=== PATIENT | female | born 1970 | race Caucasian/White ===

== ENCOUNTER 2016-11-06 11:42 | Day surgery (SDC) | payer OTHER ==
[~2016-11-06 11:42] MED LIST: ceFAZolin 2 GM/50 ML 50 ML IV ONE
[2016-11-06] MEDS ORDERED: LACTATED RINGERS 1,000 ML IV ONE ×2 (12:04→15:16)
[2016-11-06 13:18] LABS: HCG UR QUAL NEGATIVE
[2016-11-06] MEDS ORDERED: BUPIVACAINE 0.5% PF 30 ML VIAL SUBQ ONE (14:44)
[2016-11-06] MEDS ORDERED: PROPOFOL 200 MG/20 ML VIAL IVP ONE (15:33)
[2016-11-06] MEDS ORDERED: fentaNYL 100 MCG/2 ML VIAL IVP ONE (15:33)
[2016-11-06] MEDS ORDERED: ROPIVACAINE 0.5% PF 20 ML AMPULE EP ONE (15:33)
[2016-11-06] MEDS ORDERED: MIDAZOLAM 2 MG/2 ML VIAL IVP ONE (15:33)
[2016-11-06] MEDS ORDERED: DEXAMETHASONE 4 MG/ML VIAL IVP ONE (15:33)
[2016-11-06 16:55] VITALS: BP 108/68
--- NOTE | 2016-11-06 18:34 | OPERATIVE REPORT ---
DATE OF SURGERY: 11/06/2016 00:00:00 PREOPERATIVE DIAGNOSIS: Right thumb carpometacarpal joint arthritis. POSTOPERATIVE DIAGNOSIS: Right thumb carpometacarpal joint arthritis. NAME OF PROCEDURE: Right thumb carpometacarpal joint arthroplasty, with ligament reconstruction and tendon interposition. SURGEON: Kelley Boyd MD ANESTHESIA: Interscalene block and sedation by Yajaira __Kaity . 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 She has had injection treatment, and has ongoing pain and swelling in that area, and desires arthroplasty. FINDINGS AT SURGERY: The patient's joint showed hypertrophic spurring and a small loose body. The cartilage loss was predominantly on the base of the first metacarpal, but also some spotty loss on the trapezium. DESCRIPTION OF OPERATIVE PROCEDURE: The patient was taken to the operating room. She was given an interscalene block and then a MAC anesthetic. A tourniquet was placed on her arm, and her forearm and hand were sterilely prepped and draped in the standard fashion. The thumb was approached through a curved incision at the base of thumb, retracting the extensor tendons and exposing the capsule of the carpometacarpal joint, which was incised longitudinally, gaining exposure also to the radial aspect of the trapezium. The arthrotomy was performed and a small loose body removed. Fluid was encountered and synovitis. Reflection was made in the capsule to expose both the base of the first metacarpal and the trapezium, allowing resection of the trapezium. Once this was accomplished, a drill hole was placed in the base of the first metacarpal and the flexor carpi radialis was freed from the forearm to act as a graft, both as a suspension ligament reconstruction and then an interposition in the gap. The graft was prepared to pass through the small drill hole in the metacarpal, back on itself, and then woven into an anchovy graft with sutures holding it in place. This was accomplished with securing of the tendon reconstruction and the capsule closure. The thumb had been held in abduction and pinned with 0.062 K-wire into the carpus, which held anatomic rastafari. The tourniquet was deflated. Mild bleeders were cauterized. The continuing closure was with interrupted Vicryl subcutaneous and Monocryl in the skin. Sterile dressings were applied. The patient was placed in a thumb spica splint and taken to the recovery room in stable condition. ESTIMATED BLOOD LOSS: Minimal. COMPLICATIONS: None. SPONGE AND NEEDLE COUNTS: Correct. JOB #: [id number] EXT JOB #:[id number] MTDD
== END 2016-11-06 11:43 | disposition home or self-care (01) ==
LOC: SDS 11:42
PROVIDERS: ATTEND Orthopaedic Surgery
PROC: 0RQT0ZZ Repair Left Carpometacarpal Joint, Open Approach (ICD-10-PCS; principal; 2016-11-06 12:45)
DX: M18.11 Unilateral primary osteoarthritis of first carpometacarpal joint, right hand (principal); J45.909 Unspecified asthma, uncomplicated; E03.9 Hypothyroidism, unspecified; F41.9 Anxiety disorder, unspecified; F32.9 Major depressive disorder, single episode, unspecified; D64.9 Anemia, unspecified
CPT/HCPCS: 25447; 26480; 81025; J0690; J7120

== ENCOUNTER 2018-10-29 03:11 | Emergency (ER) | payer BC, OTHER ==
--- NOTE | 2018-10-29 03:33 | ED Physician Documentation ---
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 No: Neck pain, Weakness, Paresthesias, Nausea / vomiting Contributing factors: Intoxicated. No: Anticoagulated Similar symptoms before: Has not had sx before Recently seen: Not recently seen - Additional information Additional information: patient does not recall falling. She recalls watching TV, then found she was at the bottom of a flight of stairs at home with right wrist pain and bleeding from a scalp laceration. She was able to walk back up the steps and told her roommate that she had sustained these injuries, friend drove patient to ED. Patient c/o right wrist pain and GRAVES Review of Systems Eyes: reports: Reviewed and negative Cardiac: reports: Reviewed and negative Respiratory: reports: Reviewed and negative GI: reports: Reviewed and negative Skin: reports: Laceration (s) (scalp laceration) Musculoskeletal: reports: Joint pain (right wrist), Joint swelling (right wrist) Neurologic: reports: Headache, Head injury, LOC. denies: Generalized weakness, Focal weakness, Numbness PD PAST MEDICAL HISTORY - Past Medical History Cardiovascular: None Respiratory: Asthma, Sleep apnea Endocrine/Autoimmune: HyPOthyroidism GI: None : None HEENT: Chronic vision loss Psych: Anxiety Musculoskeletal: Osteoarthritis Derm: None - Past Surgical History General: Gastric surgery, Other - Present Medications Home Medications: Ambulatory Orders Medication Instructions Recorded Confirmed Albuterol Sulfate [Proventil Hfa] 60 puffs IH ONCE PRN 08/22/15 10/29/18 Alprazolam [Alprazolam Xr] 0.5 mg PO ONCE PRN 08/22/15 10/29/18 Citalopram [CeleXA] 20 mg PO DAILY 08/22/15 10/29/18 Ferrous Sulfate 325 mg PO DAILY 08/22/15 10/29/18 Levothyroxine [Synthroid] 25 mcg PO QDAC 08/22/15 10/29/18 Oxycodone HCl/Acetaminophen 1 - 2 each PO Q6H PRN #14 tablet 10/29/18 [Percocet 5-325 mg Tablet] - Allergies Allergies/Adverse Reactions: Allergies Allergy/AdvReac Type Severity Reaction Status Date / Time Penicillins Allergy Hives Verified 10/29/18 03:31 PD ED PE NORMAL - Vitals Vital signs reviewed: Yes - General General: Alert and oriented X 3, No acute distress, Well developed/nourished - HEENT HEENT: PERRL, EOMI, Moist mucous membranes - Neck Neck: No bony TTP - Cardiac Cardiac: RRR, No murmur - Respiratory Respiratory: No respiratory distress, Clear bilaterally - Abdomen Abdomen: Soft, Non tender - Back Back: No spinal TTP - Derm Derm: Normal color, Warm and dry - Extremities Extremities: Other (right wrist: focal swelling and TTP ulnar aspect of wrist) - Neuro Neuro: Alert and oriented X 3, 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, No motor deficit, No sensory deficit, Normal speech Eye Opening: Spontaneous Motor: Obeys Commands Verbal: Oriented GCS Score: 15 PD ED PE EXPANDED - HEENT HEENT Visual: 1 - laceration (5 cm length) Results - Vitals Vitals: Vital Signs - 24 hr 10/29/18 10/29/18 10/29/18 03:15 03:27 03:49 Temperature 36.7 C Heart Rate 93 79 79 Respiratory 18 12 12 Rate Blood Pressure 125/65 104/43 L 104/43 L O2 Saturation 99 99 100 10/29/18 10/29/18 10/29/18 04:36 05:36 06:00 Temperature 36.5 C Heart Rate 85 86 86 Respiratory 13 12 14 Rate Blood Pressure 103/62 101/60 106/59 L O2 Saturation 98 97 96 Oxygen O2 Source Room air - Rads (name of study) CTH Radiology: Prelim report reviewed, See rad report CT cervical spine Radiology: Prelim report reviewed, See rad report right wrist xrays Radiology: Prelim report reviewed, See rad report Procedures - Laceration (location) Scalp Length in cm: 5 Wound type: Linear Anesthesia: Lidocaine 1% Wound Preparation: Hibiclens, Irrigated copiously NS, Wound explored Skin layer closure: Sera Other: Patient tolerated well, No complications, Neurovascular intact, Tetanus UTD Complexity: Simple - Splint (location) Upper extremity right Splint applied by: Tech Type of splint: Fiberglass, Ulnar gutter Other: Patient tolerated well, No complications, Neurovascular intact, Good alignment PD MEDICAL DECISION MAKING - ED course Complexity details: reviewed results, re-evaluated patient, considered differential, d/w patient Departure - Departure Disposition: 01 Home, Self Care Clinical Impression: Fall, Scalp laceration, Sprain of wrist, right Condition: Good Instructions: ED Laceration Scalp Stitch Or Stap, ED Splint Care Fiberglass, ED Sprain Wrist Prescriptions: Oxycodone HCl/Acetaminophen [Percocet 5-325 mg Tablet] 1 - 2 each PO Q6H PRN #14 tablet PRN Reason: pain Comments: Follow up with your primary care provider in 7-10 days for removal of the sera and reevaluation of the wrist injury. Discharge Date/Time: 10/29/18 06:00
[2018-10-29] MEDS ORDERED: LIDOCAINE 1% 2 ML VIAL SUBQ STA (03:44)
--- NOTE | 2018-10-29 04:32 | XRAY Report ---
Reason: fall, right wrist pain Procedure Date: 10/29/2018 Accession Number: [id number] / [id number] Procedure: XR - Wrist 4 View RT CPT Code: FULL RESULT: EXAM: RIGHT WRIST RADIOGRAPHY EXAM DATE: 10/29/2018 04:24 AM. CLINICAL HISTORY: Fall, right wrist pain. COMPARISON: None. TECHNIQUE: 4 views. FINDINGS: Bones: No acute fracture is seen. There appears to be resection of the trapezium. Joints: No dislocation seen. Mild degenerative changes. Soft Tissues: Soft tissue swelling. IMPRESSION: 1. No acute fracture or dislocation seen. 2. There appears to be resection of the trapezium. RADIA
--- NOTE | 2018-10-29 04:35 | CT Report ---
Reason: fall, head injury Procedure Date: 10/29/2018 Accession Number: [id number] / [id number] Procedure: CT - HEAD WO CPT Code: FULL RESULT: EXAM: CT HEAD EXAM DATE: 10/29/2018 04:24 AM. CLINICAL HISTORY: Fall, head injury. COMPARISON: None. TECHNIQUE: Multiaxial CT images were obtained from the foramen magnum to the vertex. Reformats: Sagittal and coronal. IV contrast: None. In accordance with CT protocol optimization, one or more of the following dose reduction techniques were utilized for this exam: automated exposure control, adjustment of mA and/or KV based on patient size, or use of iterative reconstructive technique. FINDINGS: Parenchyma: No intraparenchymal hemorrhage. No evidence of mass, midline shift, or CT findings of infarction. Alex-white differentiation is distinct. Extraaxial Spaces: Normal for age. No subdural or epidural collections identified. Ventricles: Normal in size and position. Sinuses and Orbits: Mild chronic sinus disease. Visualized orbital contents are unremarkable. Bones: No evidence of fracture or calvarial defect. Other: None. IMPRESSION: Mild chronic sinus disease. Otherwise, normal CT of the brain without contrast. RADIA
--- NOTE | 2018-10-29 04:38 | CT Report ---
Reason: fall, head injury Procedure Date: 10/29/2018 Accession Number: [id number] / [id number] Procedure: CT - CERVICAL SPINE WO CPT Code: FULL RESULT: EXAM: CT CERVICAL SPINE WITHOUT CONTRAST DATE: 10/29/2018 04:24 AM. HISTORY: Pain after injury. Intoxication. COMPARISONS: None. TECHNIQUE: Thin-section axial images were acquired of the cervical spine without contrast. Post-processing: Coronal and sagittal reformats. Other: None. In accordance with CT protocol optimization, one or more of the following dose reduction techniques were utilized for this exam: automated exposure control, adjustment of mA and/or KV based on patient size, or use of iterative reconstructive technique. FINDINGS: Alignment: No scoliosis or spondylolisthesis. Bones: No fracture or bone lesion. Interspace Levels/Facets: C1-C2: Unremarkable. C2-C3: Unremarkable. C3-C4: Unremarkable. C4-C5: Mild degenerative disk disease. C5-C6: Moderate degenerative disk disease with posterior disk osteophyte complex contacting the cord, left worse than right. Uncovertebral joint spurring with mild left foraminal stenosis. C6-C7: Mild degenerative disk disease. C7-T1: Unremarkable. Musculature: Normal. No fatty atrophy. Other: The paravertebral and prevertebral soft tissues are unremarkable. The lung apices are clear. IMPRESSION: 1. No acute cervical spine abnormality. 2. Degenerative disk disease, especially C5-C6, with mild left foraminal stenosis. RADIA
[2018-10-29] MEDS ORDERED: oxyCODONE 5 MG TABLET PO STA (05:30)
[2018-10-29 06:00] VITALS: BP 106/59
== END 2018-10-29 06:00 | disposition home or self-care (01) ==
LOC: ED 03:11
DX: S01.01XA Laceration without foreign body of scalp, initial encounter (principal); S63.501A Unspecified sprain of right wrist, initial encounter; W10.9XXA Fall (on) (from) unspecified stairs and steps, initial encounter; Y92.009 Unspecified place in unspecified non-institutional (private) residence as the place of occurrence of the external cause; M50.322 Other cervical disc degeneration at C5-C6 level
CPT/HCPCS: 12002; 29125; 70450; 72125; 73110; 99284; A9270

== ENCOUNTER 2020-02-03 15:31 | Outpatient (CLI) | payer OTHER ==
--- NOTE | 2020-02-04 07:44 | Mammography Report ---
BILATERAL DIGITAL SCREENING MAMMOGRAM 3D/2D: 02/03/2020 CLINICAL: Routine screening. Comparison is made to exams dated: 06/22/2015 mammogram, 12/31/2012 mammogram, and 12/17/2011 mammogr am - [facility]. The tissue of both breasts is heterogeneously dense. This may low er the sensitivity of mammography. No significant masses, calcifications, or other findings are seen in either breast. There has been no significant interval change. IMPRESSION: NEGATIVE There is no mammographic evidence of malignancy. A 1 year screening mammogram is recommended. This exam was interpreted at Station ID: [id number]. NOTE: For mammograms, a report in lay terms will be sent to the patient. Approximately 15% of breast malignancies will not be visualized mammographically. In the management of a palpable breast mass, a negative mammogram must not discourage biopsy of a clinically suspicious lesion. Electronically Signed By: Madi Garcia M.D. ddp/penrad:02/03/2020 16:20:22 ACR BI-RADS Category 1: Negative 3341F PARENCHYMAL PATTERN: (D) - The breast(s) demonstrate(s) heterogeneously dense fibroglandular beverly mejía. BI-RADS CATEGORY: (1) - 1 RECOMMENDATION: (ANNUAL) - Recommend routine annual screening mammography. [id number] 1 year screening LATERALITY: (B)
== END 2020-02-03 15:32 | disposition home or self-care (01) ==
LOC: DI.N 15:31
PROVIDERS: ATTEND Physician Assistant Medical
DX: Z12.31 Encounter for screening mammogram for malignant neoplasm of breast (principal)

== ENCOUNTER 2021-07-02 12:13 | Emergency (ER) | payer OTHER ==
--- NOTE | 2021-07-02 12:36 | ED Physician Documentation ---
PD HPI URI - Stated complaint Stated Complaint: SOA/COUGHING - Chief complaint Chief Complaint: Resp - History obtained from History obtained from: Patient - History of Present Illness Timing - onset: How many weeks ago (1) Timing duration: Weeks (1) Timing details: Gradual onset, Still present Associated symptoms: Chills, Productive cough, Dyspnea (with wheezing) Contributing factors: COPD / asthma, Other (had negative rapid covid test this morning at home.). No: Sick contact Improves by: No: MDI/nebulizer (using albuterol often at home without consistent improvement. Has nebulizer and MDI.) Worsened by: Activity Similar symptoms before: Diagnosis (will have asthma exac with URIs in the past. No prior intubations.) Recently seen: Not recently seen Review of Systems Constitutional: reports: Chills, Myalgias. denies: Fever Nose: reports: Rhinorrhea / runny nose, Congestion Throat: denies: Sore throat Cardiac: denies: Chest pain / pressure Respiratory: reports: Dyspnea, Cough, Wheezing GI: denies: Abdominal Pain, Vomiting, Diarrhea Skin: denies: Rash PD PAST MEDICAL HISTORY - Past Medical History Cardiovascular: None Respiratory: Asthma, Sleep apnea Endocrine/Autoimmune: HyPOthyroidism GI: None : None HEENT: Chronic vision loss Psych: Anxiety Musculoskeletal: Osteoarthritis Derm: None - Past Surgical History Past Surgical History: Yes General: Gastric surgery, Other - Present Medications Home Medications: Ambulatory Orders Medication Instructions Recorded Confirmed Citalopram [CeleXA] 40 mg PO DAILY 08/22/15 07/02/21 Ferrous Sulfate 325 mg PO DAILY 08/22/15 07/02/21 Levothyroxine [Synthroid] 50 mcg PO QDAC 08/22/15 07/02/21 Benzonatate [Tessalon] 100 mg PO TID PRN #20 cap 07/02/21 Buspirone HCl 7.5 mg PO TID 07/02/21 07/02/21 Doxycycline Hyclate 100 mg PO BID 7 Days #14 cap 07/02/21 Ipratropium [Atrovent] 0.5 mg INH Q6H 7 Days #70 ml 07/02/21 dexAMETHasone [Decadron] 4 mg PO DAILY #5 tablet 07/02/21 guaiFENesin/CODEINE [Robitussin AC] 10 ml PO Q6H PRN #120 ml 07/02/21 - Allergies Allergies/Adverse Reactions: Allergies Allergy/AdvReac Type Severity Reaction Status Date / Time Penicillins Allergy Hives Verified 07/02/21 12:16 - Social History Does the pt smoke?: No Smoking Status: Never smoker Does the pt drink ETOH?: Yes Does the pt have substance abuse?: No - Immunizations Immunizations are current?: Yes - POLST Patient has POLST: No PD ED PE NORMAL - Vitals Vital signs reviewed: Yes - General General: Alert and oriented X 3, No acute distress, Well developed/nourished - HEENT HEENT: Ears normal, Moist mucous membranes, Pharynx benign - Neck Neck: Supple, no meningeal sign, No adenopathy - Cardiac Cardiac: RRR, No murmur - Respiratory Respiratory: No: Clear bilaterally (diffuse moderate wheeze with accessory muscle use. Able to talk sentences. ) - Abdomen Abdomen: Soft, Non tender - Derm Derm: Normal color, Warm and dry, No rash Results - Vitals Vitals: Oxygen O2 Source Room air - Rads (name of study) chest xray Radiology: Prelim report reviewed (no infiltrates), See rad report PD MEDICAL DECISION MAKING - ED course Complexity details: re-evaluated patient (duoneb here improved her more than albuterol had been at home, so can add atrovent. ), considered differential (seems like asthma exac atop URI, but now consider bacterial secondary infection. ), d/w patient Departure - Departure Disposition: 01 Home, Self Care Clinical Impression: Bronchitis Upper respiratory infection Qualifiers: URI type: unspecified URI Qualified Code(s): J06.9 - Acute upper respiratory infection, unspecified Exacerbation of asthma Qualifiers: Asthma severity: mild Asthma persistence: intermittent Qualified Code(s): J45.21 - Mild intermittent asthma with (acute) exacerbation Condition: Stable Record reviewed to determine appropriate education?: Yes Prescriptions: Ipratropium [Atrovent] 0.5 mg INH Q6H 7 Days #70 ml dexAMETHasone [Decadron] 4 mg PO DAILY #5 tablet Doxycycline Hyclate 100 mg PO BID 7 Days #14 cap guaiFENesin/CODEINE [Robitussin AC] 10 ml PO Q6H PRN #120 ml PRN Reason: Cough Benzonatate [Tessalon] 100 mg PO TID PRN #20 cap PRN Reason: Cough Comments: Your chest x-ray is clear without any signs of pneumonia. You are having the trouble breathing and it sounds like an infectious cause. Most likely initially this was a viral type illness but now sounds possibly to have a secondary bronchitis and also flaring up of your asthma. Would have you continue with your albuterol nebulizer or inhaler 3-4 times daily over the next week or so. To that you could add ipratropium in the same nebulizer as your albuterol treatment as this did seem to be more effective for you here in the ER. Add Decadron steroid daily for 5 more days to help with inflammation of the airways. Benzonatate/Tessalon and also Robitussin cough medicine if needed for cough. Given your increase in symptoms, there would be concern for possible bacterial secondary infection so add the antibiotic as directed. I transmitted prescriptions to [facility] pharmacy in [place]. Recheck if not improving well over the next few days. Discharge Date/Time: 07/02/21 14:21
[2021-07-02] MEDS ORDERED: IPRATROPIUM/ALBUTEROL 3 ML NEB INH STA (12:58)
[2021-07-02] MEDS ORDERED: BENZONATATE 100 MG CAPSULE PO STA (12:58)
[2021-07-02] MEDS ORDERED: guaiFENesin/CODEINE 5 ML UDC PO STA (12:58)
[2021-07-02] MEDS ORDERED: CHERRY SYRUP 10 ML UDC PO ONE (12:58)
[2021-07-02] MEDS ORDERED: DEXAMETHASONE 10 MG/ML VIAL PO STA (12:58)
--- NOTE | 2021-07-02 13:18 | XRAY Report ---
PROCEDURE: Chest 1 View X-Ray INDICATIONS: cough and fever over a week TECHNIQUE: One view of the chest was acquired. COMPARISON: 05/07/2014 FINDINGS: Surgical changes and devices: None. Lungs and pleura: No pleural effusions or pneumothorax. Lungs are clear. Mediastinum: Mediastinal contours appear normal. Heart size is normal. Bones and chest wall: No suspicious bony lesions. Overlying soft tissues appear unremarkable. IMPRESSION: No acute process. Reviewed by: Tony Canales MD on 07/02/2021 1:17 PM PDT Approved by: Tony Canales MD on 07/02/2021 1:17 PM PDT Station ID: [id number]
[2021-07-02] MEDS ORDERED: DOXYCYCLINE 100 MG TABLET PO STA (13:59)
[2021-07-02 14:21] VITALS: BP 106/68
== END 2021-07-02 14:21 | disposition home or self-care (01) ==
LOC: ED 12:13
DX: J40 Bronchitis, not specified as acute or chronic (principal); J45.21 Mild intermittent asthma with (acute) exacerbation; J06.9 Acute upper respiratory infection, unspecified
CPT/HCPCS: 71045; 94640; 99283; A9270

== ENCOUNTER 2022-01-10 08:00 | Outpatient (CLI) | payer OTHER ==
--- NOTE | 2022-01-11 15:02 | XRAY Report ---
PROCEDURE: Ribs w/PA Chest LT INDICATIONS: L RIB PX TECHNIQUE: 3 views of the left ribs were acquired, along with a single view chest. COMPARISON: None FINDINGS: Surgical changes and devices: None. Bones and chest wall: No fractures or dislocations. No suspicious bony lesions. Overlying soft tis sues appear unremarkable. Lungs and pleura: No pleural effusions or pneumothorax. Lungs appear clear. Mediastinum: Mediastinal contours appear normal. Heart size is normal. IMPRESSION: No visualized acute fracture or dislocation. However, occult injury cannot be excluded. Recommend leihgann rt interval imaging follow-up in 7-10 days as clinically indicated for additional evaluation. Reviewed by: Alma Livingston MD on 01/11/2022 3:01 PM PST Approved by: Alma Livingston MD on 01/11/2022 3:01 PM [facility] Station ID: [id number]
== END 2022-01-10 23:59 | disposition home or self-care (01) ==
LOC: DI.N 08:00
PROVIDERS: ATTEND Physician Assistant
DX: R07.81 Pleurodynia (principal)

== ENCOUNTER 2022-06-15 11:50 | Outpatient (CLI) | payer OTHER ==
--- NOTE | 2022-06-15 13:28 | XRAY Report ---
PROCEDURE: Knee 3 View LT INDICATIONS: KNEE PAIN TECHNIQUE: 3 views of the left knee(s) were acquired. COMPARISON: None. FINDINGS: Bones: No fractures or dislocations. No suspicious bony lesions. Tricompartmental joint space homer rowing with associated osteophytosis. Trace sclerosis of the medial tibial plateau. Soft tissues: No knee joint effusion. No suspicious soft tissue calcifications or masses. IMPRESSION: Moderate tricompartmental osteoarthritis. Reviewed by: Augustin Lam on 06/15/2022 1:26 PM PDT Approved by: Augustin Lam on 06/15/2022 1:26 PM PDT Station ID: [id number]
== END 2022-06-15 11:51 | disposition home or self-care (01) ==
LOC: DI 11:50
PROVIDERS: ATTEND Physician Assistant
DX: M17.12 Unilateral primary osteoarthritis, left knee (principal)

== ENCOUNTER 2022-10-29 12:37 | Outpatient (CLI) | payer OTHER ==
--- NOTE | 2022-10-30 11:12 | Mammography Report ---
BILATERAL DIGITAL SCREENING MAMMOGRAM 3D/2D: 10/29/2022 CLINICAL: Routine screening. Comparison is made to exams dated: 02/03/2020 mammogram, 06/22/2015 mammogram, 12/31/2012 mammogram, a nd 12/17/2011 mammogram - [facility]. Both breasts are heterogeneously dense, which may obscure small masses (category c / 51-75% glandular tissue). No significant masses, calcifications, or other findings are seen in either breast. IMPRESSION: NEGATIVE There is no mammographic evidence of malignancy. A 1 year screening mammogram is recommended. Based on the Tyrer Cuzick model (a risk assessment model) the patients lifetime risk is 13.3% and he r 10 year risk is 3.3%. According to the ACR, ACS, and NCCN guidelines, an annual breast MRI exam bj ng with mammogram is recommended if the patients lifetime risk is 20% or greater. This exam was interpreted at Station ID: [id number]. NOTE: For mammograms, a report in lay terms will be sent to the patient. Approximately 15% of breast malignancies will not be visualized mammographically. In the management of a palpable breast mass, a negative mammogram must not discourage biopsy of a clinically suspicious lesion. Electronically Signed By: Livan Ge M.D. [email or web address]/von:10/29/2022 18:10:35 ACR BI-RADS Category 1: Negative 3341F PARENCHYMAL PATTERN: (D) - The breast(s) demonstrate(s) heterogeneously dense fibroglandular beverly mejía. BI-RADS CATEGORY: (1) - 1 Mammogram [id number] 1 year screening LATERALITY: (B)
== END 2022-10-29 12:38 | disposition home or self-care (01) ==
LOC: DI.N 12:37
PROVIDERS: ATTEND Nurse Practitioner Family
DX: Z12.31 Encounter for screening mammogram for malignant neoplasm of breast (principal)

== ENCOUNTER 2023-01-14 10:22 | Day surgery (SDC) | payer OTHER ==
[2023-01-14] MEDS ORDERED: LACTATED RINGERS 1,000 ML IV ONE ×2 (10:35)
--- NOTE | 2023-01-14 10:43 | ANESTHESIA ---
Pre-Anesthesia VS, & Labs - Diagnosis screening - Procedure colonoscopy Height: 5 ft 4 in Weight (kg): 86 kg Body Mass Index: 32.5 BMI Classification: Obese - NPO >8 hours Last Fluid Intake: am prep - Is Patient ?: No - Lab Results Lab results reviewed: Yes Home Medications and Allergies Home Medications: Ambulatory Orders Albuterol 2 inh Q4HR PRN 01/11/23 Cyclobenzaprine HCl 5 mg PO BID 01/11/23 Gabapentin [Neurontin] 300 mg PO TID 01/11/23 Citalopram [CeleXA] 60 mg PO DAILY 08/22/15 Levothyroxine [Synthroid] 50 mcg PO QDAC 08/22/15 Buspirone HCl 7.5 mg PO TID 07/02/21 Albuterol 2 inh Q4HR PRN 01/11/23 Cyclobenzaprine HCl 5 mg PO BID 01/11/23 Gabapentin [Neurontin] 300 mg PO TID 01/11/23 Allergies/Adverse Reactions: Allergies Allergy/AdvReac Type Severity Reaction Status Date / Time Penicillins Allergy Hives Verified 01/11/23 13:58 Anes History & Medical History - Anesthetic History Anesthesia Complications: reports: No previous complications Family history of Anesthesia Complications: Denies Family history of Malignant Hyperthermia: Denies - Medical History Cardiovascular: reports: None Pulmonary: reports: Asthma, Sleep apnea Gastrointestinal: reports: None Urinary: reports: None Musculoskeletal: reports: Osteoarthritis, Fibromyalgia, Fatigue Endocrine/Autoimmune: reports: HyPOthyroidism Skin: reports: None Smoking Status: Never smoker - Surgical History General: reports: Gastric surgery, Other Gynecologic: reports: Other Orthopedic: reports: Other Exam General: Alert, Oriented x3, Cooperative Dental: WNL Mouth Openin Fingerbreadth Neck Mobility: Normal Mallampati classification: II Thyromental Distance: 4-6 cm Respiratory: Lungs clear, Normal breath sounds, No respiratory distress Cardiovascular: Regular rate Neurological: Normal speech Mental/Cognitive Status: Alert/Oriented X3, Normal for patient Cognitive Status: Within normal limits Plan Anesthesia Type: Total IV Consent for Procedure(s) Verified and Reviewed: Yes Code Status: Attempt Resuscitation ASA classification: 2-Mild systemic disease Is this case an emergency?: No
[2023-01-14] MEDS ORDERED: MIDAZOLAM 2 MG/2 ML VIAL ONE (11:13)
[2023-01-14] MEDS ORDERED: PROPOFOL 500 MG/50 ML 500 MG/50 ML VIAL ONE (11:14)
[2023-01-14] MEDS ORDERED: LIDOCAINE-MPF 2% 5 ML VIAL ONE (11:28)
[2023-01-14] MEDS ORDERED: PROPOFOL 200 MG/20 ML VIAL IVP ONE (11:48)
[2023-01-14] MEDS ORDERED: LACTATED RINGERS 300 ML IV ONE (11:55)
[2023-01-14 12:17] VITALS: BP 115/71; O2SAT 98
--- NOTE | 2023-01-14 12:25 | ANESTHESIA POST OP EVALUATION ---
Anesthesia Post Eval - Post Anesthesia Eval Vitals: Last Vital Signs Temp 36 C L 01/14/23 12:08 Pulse 87 01/14/23 12:08 Resp 12 01/14/23 12:08 BP 115/71 01/14/23 12:08 Pulse Ox 98 01/14/23 12:08 O2 Flow Rate CV Function Including HR & BP: Stable Pain Control: Satisfactory Nausea & Vomiting: Negative Mental Status: Baseline Respiratory Status: Airway Patent Hydration Status: Satisfactory Anesthesia Complications: None
== END 2023-01-14 10:23 | disposition home or self-care (01) ==
LOC: SDS 10:22
PROVIDERS: ATTEND Surgery
DX: Z12.11 Encounter for screening for malignant neoplasm of colon (principal); K57.30 Diverticulosis of large intestine without perforation or abscess without bleeding; E66.9 Obesity, unspecified; G47.30 Sleep apnea, unspecified; J45.909 Unspecified asthma, uncomplicated; Z68.32 Body mass index [BMI] 32.0-32.9, adult
CPT/HCPCS: 45378; J7120

== ENCOUNTER 2023-05-26 14:34 | Emergency (ER) | payer OTHER ==
[2023-05-26 14:51] VITALS: O2SAT 98
--- NOTE | 2023-05-26 15:10 | XRAY Report ---
PROCEDURE: Chest 1V INDICATIONS: cough/sob TECHNIQUE: One view of the chest was acquired. COMPARISON: July 02, 2021 FINDINGS: Surgical changes and devices: None. Lungs and pleura: No pleural effusions or pneumothorax. Lungs are clear. Mediastinum: Mediastinal contours appear normal. Heart size is normal. Bones and chest wall: No suspicious bony lesions. Overlying soft tissues appear unremarkable. IMPRESSION: No acute cardiopulmonary process. Reviewed by: Carlos Novak MD on 05/26/2023 2:09 PM TAMMY Approved by: Carlos Novak MD on 05/26/2023 2:09 PM TAMMY Station ID: [id number]
[2023-05-26] MEDS: AZITHROMYCIN 250 MG TABLET PO STA (15:14)
[2023-05-26 15:29] VITALS: BP 148/92
--- NOTE | 2023-05-26 15:32 | ED Physician Documentation ---
History of Present Illness - Stated complaint Stated Complaint: COUGH/CONGESTED - Chief complaint Chief Complaint: Resp - History obtained from History obtained from: Patient - Additonal information Additional information: Patient comes to the emergency department for chief complaint of ongoing cough for the last 3 weeks. She states it started with cold-like symptoms but she has just had a persistent, deep cough that seems to be getting worse and worse. She is not bringing up any sputum. No fevers or chills. She has a history of asthma and has been using her inhaler a lot. No history of smoking. She was seen at the walk-in clinic a couple of times and states they did not do any testing but just put her on inhaler and steroid. She has not had any swabbing or x-ray. The patient states her cough just feels really deep and it seems to be getting worse and she is concerned that it is more than "just a cold". No other complaints at this time. PD PAST MEDICAL HISTORY - Past Medical History Past Medical History: Yes Cardiovascular: None Respiratory: Asthma, Sleep apnea Endocrine/Autoimmune: HyPOthyroidism GI: None : None HEENT: None Psych: Depression, Anxiety Musculoskeletal: Osteoarthritis, Fibromyalgia, Fatigue Derm: None - Past Surgical History Past Surgical History: Yes General: Gastric surgery, Other Ortho: Other /LENS GAUGER: Other - Present Medications Home Medications: Ambulatory Orders Medication Instructions Recorded Confirmed Citalopram [CeleXA] 60 mg PO DAILY 08/22/15 01/14/23 Levothyroxine [Synthroid] 50 mcg PO QDAC 08/22/15 01/14/23 Buspirone HCl 7.5 mg PO TID 07/02/21 01/14/23 Albuterol 2 inh Q4HR PRN 01/11/23 01/11/23 Cyclobenzaprine HCl 5 mg PO BID 01/11/23 01/14/23 Gabapentin [Neurontin] 300 mg PO TID 01/11/23 01/14/23 DULoxetine [Cymbalta] 60 mg PO DAILY 01/14/23 01/14/23 Azithromycin [Zithromax] 0 mg PO DAILY #6 tablet 05/26/23 - Allergies Allergies/Adverse Reactions: Allergies Allergy/AdvReac Type Severity Reaction Status Date / Time Penicillins Allergy Hives Verified 05/26/23 14:39 - Social History Does the pt smoke?: No Smoking Status: Never smoker Does the pt drink ETOH?: Yes Does the pt have substance abuse?: No - Immunizations Immunizations are current?: Yes - POLST Patient has POLST: No PD ED PE NORMAL - Vitals Vital signs reviewed: Yes - General General: Alert and oriented X 3, No acute distress - HEENT HEENT: Atraumatic, PERRL, EOMI, Moist mucous membranes - Neck Neck: Supple, no meningeal sign - Cardiac Cardiac: RRR, No murmur - Respiratory Respiratory: No respiratory distress, Clear bilaterally - Abdomen Abdomen: Soft, Non tender, Non distended - Derm Derm: Normal color, Warm and dry, No rash - Extremities Extremities: No deformity, No edema, No calf tenderness / cord - Neuro Neuro: Other (Alert, grossly oriented.) - Psych Psych: Normal mood, Normal affect Results - Vitals Vitals: Vital Signs - 24 hr 05/26/23 05/26/23 14:40 15:20 Temperature 36.7 C Heart Rate 81 90 Respiratory 16 16 Rate Blood Pressure 130/60 148/92 H O2 Saturation 98 98 Oxygen O2 Source Room air - Rads (name of study) Chest x-ray Relevant Findings:: Final report received, See rad report (Negative) PD Medical Decision Making - ED course Complexity details: reviewed results, re-evaluated patient, considered differential, d/w patient ED course: The patient's x-ray was negative. She did have a worsening cough after 3 weeks of illness and was an asthmatic. I felt that at this point that she should be treated for bacterial upper respiratory tract infection. She was started on Zithromax here in the emergency department and was given a prescription for the same. Departure - Departure Disposition: 01 Home, Self Care Clinical Impression: Bronchitis, Viral syndrome Condition: Stable Instructions: ED Upper Resp Infec Abx Tx Prescriptions: Azithromycin [Zithromax] 0 mg PO DAILY #6 tablet Comments: Your illness most likely started with a viral syndrome and still may be the primary cause of your symptoms. Your chest x-ray is negative and has been read by the radiologist as such. Since you feel that your cough is getting worse after 3 weeks, we will go ahead and treat you presumptively for bronchitis. If this does not improve the cough, then it is almost certainly a purely viral illness and will have to continue passing on its own. 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 Thus it can seem as though you have had one continuous illness for an extended period of time or as actually, it has just been a succession of viral illnesses that have seamlessly followed when another. You do not have any wheezing today and should be taking your albuterol inhaler only as per dosing instructions. This would mean up to 2 puffs every 4 hours. No further steroids are indicated. You have been given your first dose of antibiotics here in the emergency department. The prescription for the remainder has been electronically transmitted to the [facility] pharmacy in [place]. Your next dose of antibiotics will be due to morning. Forms: PCP List
[2023-05-26 15:50] LABS: B. PARAPERTUSSIS- RESP PCR PAN NOT DETECTED; B. PERTUSSIS- RESP PCR PANEL NOT DETECTED; C. PNEUMONIAE- RESP PCR PANEL NOT DETECTED; CORONAVIRUS 229E-RESP PCR NOT DETECTED; CORONAVIRUS HKU1-RESP PCR NOT DETECTED; CORONAVIRUS NL63-RESP PCR NOT DETECTED; CORONAVIRUS OC43-RESP PCR NOT DETECTED; HUMAN METAPNEUMOVIRUS NOT DETECTED; INFLUENZA A- RESP PCR PANEL NOT DETECTED; INFLUENZA B - RESP PCR PANEL NOT DETECTED; M. PNEUMONIAE- RESP PCR PANEL NOT DETECTED; PARAINFLUENZA VIRUS 1 NOT DETECTED; PARAINFLUENZA VIRUS 2 NOT DETECTED; PARAINFLUENZA VIRUS 3 NOT DETECTED; PARAINFLUENZA VIRUS 4 NOT DETECTED; RHINOVIRUS/ENTEROVIRUS NOT DETECTED; RSV- RESP PCR PANEL NOT DETECTED; SARS-CoV-2 -RESP PCR PANEL NOT DETECTED
== END 2023-05-26 15:39 | disposition home or self-care (01) ==
LOC: ED 14:34
DX: J20.8 Acute bronchitis due to other specified organisms (principal); Z11.52 Encounter for screening for COVID-19
CPT/HCPCS: 71045; 87633; 99283; 99284; A9270

== ENCOUNTER 2023-10-30 07:26 | Outpatient (CLI) | payer OTHER ==
[2023-10-30 12:09] LABS: BASOPHILS % (AUTO) 0.3 %; EOSINOPHILS # (AUTO) 0.2 10^3/uL (0.0-0.7); EOSINOPHILS % (AUTO) 2.3 %; HCT - HEMATOCRIT 41.2 % (37.0-47.0); HGB - HEMOGLOBIN 13.2 g/dL (12.0-16.0); LYMPHOCYTES # (AUTO) 4.1 10^3/uL (1.5-3.5); LYMPHOCYTES % (AUTO) 47.5 %; MEAN CORPUSCULAR HEMOGLOBIN 29.5 pg (27.0-31.0); MEAN PLATELET VOLUME 10.9 fL (7.9-10.8); MONOCYTES # (AUTO) 0.6 10^3/uL (0.0-1.0); MONOCYTES % (AUTO) 6.5 %; NEUTROPHILS # (AUTO) 3.7 10^3/uL (1.5-6.6); NEUTROPHILS % (AUTO) 43.2 %; PLT - PLATELET COUNT 339 10^3/uL (130-450); RED BLOOD COUNT 4.48 10^6/uL (4.20-5.40); RED CELL DISTRIBUTION WIDTH 13.9 % (12.0-15.0); WHITE BLOOD COUNT 8.6 x10^3/uL (4.8-10.8)
[2023-10-30 12:10] LABS: ESTIMATED AVERAGE GLUCOSE 128 mg/dL (70-100); HEMOGLOBIN A1c% 6.1 % (4.27-6.07)
[2023-10-30 12:26] LABS: ALBUMIN 3.9 g/dL (3.2-5.5); ALBUMIN/GLOBULIN RATIO 1.4 (1.0-2.2); ALKALINE PHOSPHATASE 69 IU/L (42-121); ALT ALANINE AMINOTRANSFERASE 36 IU/L (10-60); AST ASPARTATE AMINOTRANSFERASE 24 IU/L (10-42); BILIRUBIN,TOTAL 0.5 mg/dL (0.2-1.0); BUN - BLOOD UREA NITROGEN 14 mg/dL (6-20); CALCIUM 9.3 mg/dL (8.5-10.3); CARBON DIOXIDE - CO2 36 mmol/L (21-32); CHLORIDE 103 mmol/L (101-111); CHOL/HDL RATIO 1.7 (<4.4); CHOLESTEROL 159 mg/dL; CREATININE 0.8 mg/dL (0.6-1.3); GFR - MDRD 75 (>89); GLUCOSE 87 mg/dL (74-104); HDL CHOLESTEROL 96 mg/dL; LDL CHOLESTEROL,CALCULATED 49 mg/dL; LDL/HDL RATIO 0.5 (<4.4); POTASSIUM 3.8 mmol/L (3.5-4.5); SODIUM 142 mmol/L (135-145); TOTAL PROTEIN 6.7 g/dL (6.4-8.9); TRIGLYCERIDES 72 mg/dL; VLDL CHOLESTEROL 14 mg/dL
[2023-10-30 12:42] LABS: THYROID STIMULATING HORMONE 3.59 uIU/mL (0.34-5.60)
== END 2023-10-30 07:27 | disposition home or self-care (01) ==
LOC: LAB.N 07:26
DX: Z00.00 Encounter for general adult medical examination without abnormal findings (principal); E03.9 Hypothyroidism, unspecified
CPT/HCPCS: 36415; 80053; 80061; 83036; 83721; 84443; 85025